=== PATIENT | female | born 1985 | race Caucasian/White ===

== ENCOUNTER 2017-08-17 10:05 | Inpatient (IN) | payer MEDICAID ==
[2017-08-17] VITALS (11 sets, daily range): BP systolic 99–129; BP diastolic 57–75; Ht 160 cm; Wt 111.1 kg
[~2017-08-17] VITALS: Ht 160 cm; Wt 111.1 kg
[~2017-08-17 10:05] MED LIST: FLAGYL500 MG PO; LEVAQUIN500 MG PO; LEVAQUIN750 MG PO; MIRALAX17 GM PO; MOTRIN600 MG PO; OXYCODONE HCL5 MG PO; PERCOCET 5/3251 TA1 PO; PRENATAL COMPLE1 TAB PO; VALIUM 2 MG TAB2 MG PO; VALIUM5 MG PO
[2017-08-17] MEDS ORDERED: AUGMENTIN 875-11 TAB PO (10:56)
[2017-08-17] MEDS ORDERED: HYDROCODONE-APA1 TAB PO (10:56)
[2017-08-17 11:22] LABS: HEMATOCRIT 38.5 % (36.0-48.0); HEMOGLOBIN 13.1 g/dL (12-16); MCH 30.7 pg (26.0-34.0); MCV 90.2 fL (80.0-100.0); MEAN PLATELET VOLUME 9.6 fL (7.4-10.4); RBC 4.27 10x6/uL (4.00-5.40); RDW 13.1 % (11.5-14.5); WBC 10.1 10x3/uL (4.8-10.8)
[2017-08-17 20:24] LABS: BASOPHILS 0.1 % (0-2); EOSINOPHILS 0.1 % (0-7); HEMOGLOBIN 12.6 g/dL (12-16); IMMATURE GRANULOCYTES 0.6 % (0-5); LYMPHOCYTES 10.8 % (15-50); MCH 30.4 pg (26.0-34.0); MCHC 34.1 g/dL (31.0-37.0); MCV 89.2 fL (80.0-100.0); MEAN PLATELET VOLUME 9.6 fL (7.4-10.4); MONOCYTES 5.7 % (2-11); NEUTROPHILS 82.7 % (40-80); PLATELET COUNT 177 10x3/uL (130-400); RBC 4.15 10x6/uL (4.00-5.40); RDW 12.9 % (11.5-14.5)
[2017-08-17 20:51] LABS: WBC 15.2 10x3/uL (4.8-10.8)
[2017-08-18 03:00] VITALS: BP 120/68
[2017-08-18 06:57] LABS: BASOPHILS 0.1 % (0-2); EOSINOPHILS 0.4 % (0-7); HEMATOCRIT 37.5 % (36.0-48.0); HEMOGLOBIN 12.6 g/dL (12-16); IMMATURE GRANULOCYTES 0.5 % (0-5); LYMPHOCYTES 5.7 % (15-50); MCH 30.2 pg (26.0-34.0); MCHC 33.6 g/dL (31.0-37.0); MCV 89.9 fL (80.0-100.0); MEAN PLATELET VOLUME 9.8 fL (7.4-10.4); MONOCYTES 5.8 % (2-11); NEUTROPHILS 87.5 % (40-80); PLATELET COUNT 178 10x3/uL (130-400); RBC 4.17 10x6/uL (4.00-5.40); WBC 13.9 10x3/uL (4.8-10.8)
[2017-08-18 07:35] VITALS: BP 117/58
[2017-08-18 09:19] LABS: RAPID PLASMA REAGIN Non Reactive (Non Reactive)
[2017-08-18 15:51] VITALS: BP 113/65
[2017-08-18 21:26] VITALS: BP 109/62
[2017-08-19 01:55] VITALS: BP 112/67
[2017-08-19 05:50] VITALS: BP 106/69
[2017-08-19 07:20] VITALS: BP 106/67
[2017-08-19 11:20] VITALS: BP 107/69
[2017-08-19] MEDS ORDERED: IBUPROFEN600 MG PO (12:58)
[2017-08-19] MEDS ORDERED: PERCOCET 10/3251 TA1 PO (12:58)
== END 2017-08-19 14:01 | disposition home or self-care (01) | DRG 766 ==
LOC: D.LD 10:05 → D.SDCHOLD 12:00 → D.WS 08-18 20:05
PROVIDERS: Obstetrics & Gynecology
PROC: 10D00Z1 Extraction of Products of Conception, Low, Open Approach (ICD-10-PCS; principal; 2017-08-17 12:00)
PROC: 0UB70ZZ Excision of Bilateral Fallopian Tubes, Open Approach (ICD-10-PCS; 2017-08-17 12:00)
DX: O34.219 Maternal care for unspecified type scar from previous cesarean delivery (principal); Z3A.37 37 weeks gestation of pregnancy; Z37.0 Single live birth; Z30.2 Encounter for sterilization; Z30.09 Encounter for other general counseling and advice on contraception; K60.4 Rectal fistula; O75.89 Other specified complications of labor and delivery

== ENCOUNTER 2017-11-09 05:50 | Day surgery (SDC) | payer MEDICAID ==
[2017-11-06 10:47] LABS: HEMOGLOBIN 14.9 g/dL (12-16); MCH 30.2 pg (26.0-34.0); MCHC 33.9 g/dL (31.0-37.0); MCV 89.1 fL (80.0-100.0); MEAN PLATELET VOLUME 9.8 fL (7.4-10.4); RBC 4.94 10x6/uL (4.00-5.40); WBC 6.5 10x3/uL (4.8-10.8)
[~2017-11-09] VITALS: Ht 154.9 cm; Wt 101.6 kg
--- NOTE | ~2017-11-09 | OP ---
PATIENT NAME: SERGO KENNEDY MEDICAL RECORD: [id number] :87 LOCATION:D.OPS ADMISSION DATE: SURGEON: KATHY WESTBROOK MD DATE OF OPERATION: 11/09/2017 SURGEON: Kathy Westbrook MD PREOPERATIVE DIAGNOSES: 1. Rectal bleeding. 2. History of anorectal fistula. 3. Internal hemorrhoids. POSTOPERATIVE DIAGNOSES: 1. Rectal bleeding. 2. History of anorectal fistula. 3. Internal hemorrhoids. PROCEDURES PERFORMED: 1. Rectal examination under anesthesia. 2. Internal hemorrhoid banding times 3. Case was contaminated. SPECIMENS: None. ESTIMATED BLOOD LOSS: Minimal. OPERATIVE COURSE: After consent was obtained, the patient was taken to the operating room and placed in the supine position on the operating table. Next, general anesthesia was given via endotracheal intubation. After a timeout was taken to confirm the correct patient and procedure, the perineum was prepped and draped in typical sterile fashion. A 30 cc of local anesthetic were injected for a perineal block. The previous fistula site was examined. On the right anterior position at approximately 11 o'clock, there was an area of mucosa overlying the skin. The area was meticulously probed with lacrimal probes. There was no communication to the fistula, to the rectum. The rectum was serially dilated using the [place] retractors, again no internal fistula was identified. The patient did have large internal hemorrhoids of all 3 complexes, right anterior, right posterior, and left lateral. Hemorrhoid bands were placed on all 3 columns. Next, the rectum was packed with Gelfoam and with [place]. At the end of the case, all needle and instrument counts were correct. No complications occurred. The patient was extubated and transferred to the PACU in stable condition. TRANSINT:[id number] Voice Confirmation ID: [id number] DOCUMENT ID: [id number] KATHY WESTBROOK MD at 0909 CC: [id number] DICTATION DATE: 11/09/17 0849 [employer] PROFESSIONAL: 11/09/[address] [facility] 11/09/17 [place] [address]
[~2017-11-09 05:50] MED LIST changes: +AUGMENTIN 875-11 TAB PO; +HYDROCODONE-APA1 TAB PO; +IBUPROFEN600 MG PO; +PERCOCET 10/3251 TA1 PO
[2017-11-09 06:23] VITALS: BP 117/76; Ht 154.9 cm; Wt 101.6 kg
[2017-11-09] MEDS ORDERED: VALIUM5 MG PO (08:50)
[2017-11-09] MEDS ORDERED: HYDROCODON-ACE1 EAC7 PO (08:51)
[2017-11-09] MEDS ORDERED: MIRALAX17 GM PO (08:51)
== END 2017-11-09 10:35 | disposition home or self-care (01) ==
LOC: D.OPS 05:50 → D.PAN 08:00 → D.OPS 10:35
PROVIDERS: Anesthesiology
DX: K62.5 Hemorrhage of anus and rectum (principal); K64.8 Other hemorrhoids; Z01.812 Encounter for preprocedural laboratory examination